=== PATIENT | male | born 1950 | race Caucasian/White ===

== ENCOUNTER → 2018-04-18 07:27 | Outpatient (CLI) | payer MEDICARE, OTHER, SELFPAY ==
[2018-04-18 10:15] LABS: Blood Urea Nitrogen 20 mg/dL (9-20); Calcium 9.3 mg/dL (8.4-10.2); Carbon Dioxide 29 mmol/L (22-32); Chloride 100 mmol/L (98-107); Estimated Glomerular Filt Rate > 60.0 mL/min (>60); Glucose 89 mg/dL (80-110); HEMOLYSIS < 15 (0-50); Potassium 4.9 mmol/L (3.4-5.1); Sodium 141 mmol/L (137-145)
== END ==
PROVIDERS: Family Provider Internal Medicine; PCP Internal Medicine; Visit Provider Internal Medicine Cardiovascular Disease
DX: Z51.81 Encounter for therapeutic drug level monitoring (principal); Z79.899 Other long term (current) drug therapy
CPT/HCPCS: 36415; 80048

== ENCOUNTER → 2018-08-01 08:45 | Outpatient (CLI) | payer MEDICARE, OTHER, SELFPAY ==
[2018-08-01 11:19] LABS: BUN Creatinine Ratio 22.2 (6-22); Blood Urea Nitrogen 20 mg/dL (9-20); Calcium 9.4 mg/dL (8.4-10.2); Carbon Dioxide 31 mmol/L (22-32); Chloride 102 mmol/L (98-107); Estimated Glomerular Filt Rate > 60.0 mL/min (>60); Glucose 89 mg/dL (80-110); HEMOLYSIS < 15 (0-50); Potassium 4.2 mmol/L (3.4-5.1); Sodium 144 mmol/L (137-145)
== END ==
PROVIDERS: PCP Internal Medicine; Visit Provider Internal Medicine Cardiovascular Disease
DX: Z51.81 Encounter for therapeutic drug level monitoring (principal); Z79.899 Other long term (current) drug therapy
CPT/HCPCS: 36415; 80048

== ENCOUNTER → 2018-10-26 10:46 | Outpatient (CLI) | payer MEDICARE, OTHER, SELFPAY ==
[2018-10-26 13:17] LABS: BUN Creatinine Ratio 18.9 (6-22); Blood Urea Nitrogen 17 mg/dL (9-20); Calcium 9.8 mg/dL (8.4-10.2); Carbon Dioxide 28 mmol/L (22-32); Chloride 102 mmol/L (98-107); Estimated Glomerular Filt Rate > 60.0 mL/min (>60); Glucose 95 mg/dL (80-110); HEMOLYSIS < 15 (0-50); Potassium 4.8 mmol/L (3.4-5.1); Sodium 143 mmol/L (137-145)
== END ==
PROVIDERS: PCP Internal Medicine; Visit Provider Internal Medicine Cardiovascular Disease
DX: Z51.81 Encounter for therapeutic drug level monitoring (principal)
CPT/HCPCS: 36415; 80048

== ENCOUNTER → 2019-04-26 10:07 | Outpatient (CLI) | payer MEDICARE, OTHER, SELFPAY ==
[2019-04-26 13:10] LABS: BUN Creatinine Ratio 23.8 (6-22); Blood Urea Nitrogen 19 mg/dL (9-20); Calcium 9.5 mg/dL (8.4-10.2); Carbon Dioxide 29 mmol/L (22-32); Chloride 103 mmol/L (98-107); Estimated Glomerular Filt Rate > 60.0 mL/min (>60); Glucose 102 mg/dL (80-110); HEMOLYSIS < 15 (0-50); Potassium 4.5 mmol/L (3.4-5.1); Sodium 141 mmol/L (137-145)
== END ==
PROVIDERS: PCP Internal Medicine; Visit Provider Internal Medicine Cardiovascular Disease
DX: Z51.81 Encounter for therapeutic drug level monitoring (principal)
CPT/HCPCS: 36415; 80048

== ENCOUNTER → 2019-08-28 08:50 | Outpatient (CLI) | payer MEDICARE, OTHER, SELFPAY ==
[2019-08-28 09:40] LABS: BUN Creatinine Ratio 24.4 (6-22); Blood Urea Nitrogen 22 mg/dL (9-20); Calcium 9.6 mg/dL (8.4-10.2); Carbon Dioxide 31 mmol/L (22-32); Chloride 100 mmol/L (98-107); Estimated Glomerular Filt Rate > 60.0 mL/min (>60); Glucose 97 mg/dL (80-110); HEMOLYSIS < 15 (0-50); Potassium 3.9 mmol/L (3.4-5.1); Sodium 140 mmol/L (137-145)
== END ==
PROVIDERS: Family Provider Internal Medicine; PCP Internal Medicine; Visit Provider Nurse Practitioner Family
DX: Z51.81 Encounter for therapeutic drug level monitoring (principal); Z79.899 Other long term (current) drug therapy; I48.0 Paroxysmal atrial fibrillation
CPT/HCPCS: 36415; 80048

== ENCOUNTER 2019-10-23 13:16 | Day surgery (SDC) | payer MEDICARE, OTHER, SELFPAY ==
[2019-10-23] VITALS (10 sets, daily range): BP systolic 105–158; BP diastolic 58–79; PULSE 60–79; RESP 10–20; TEMP 36.4–36.7; O2SAT 94–100; BMI 27.3
--- NOTE | 2019-10-23 | PATH_ITS ---
[facility] Accession Number: [id number] . 01 Material submitted: . cecum - CECAL POLYP . 02 Diagnosis: Cecum, Polyp: Tubular adenoma. I 10/24/2019 1025 Local . 02 Electronically signed: . Buster Roldan MD, PhD, Pathologist NPI- [id number] . 01 Gross description: . CECAL POLYP: Received in formalin are 4 fragment(s) of mcrae, soft tissue measuring 0.1 x 0.1 x 0.1 cm to 0.3 x 0.3 x 0.2 cm submitted entirely in 1 cassette(s) [place] [place]23/2019 2019 Local . 02 Pathologist provided ICD-10: D12.0 . 02 CPT . 927860 Performed at: 01 [facility] [address] [facility], [place], [place] [id number] MD Chet Isabel MD Phone: [phone] Performed at: 02 [facility] [address] [place], [place] [id number] MD Daphney Morales MD Phone: [phone]
--- NOTE | 2019-10-23 12:01 | PM.HP.1 ---
History of Present Illness History of Present Illness Date Patient Seen: 10/23/19 Chief complaint: 20350 Narrative: History of adenomatous colon polyps. Meds Home Medications and Allergies Home Medications Medication Instructions Recorded Confirmed Type [NASONEX] 50 mcg Q DAY #0 07/16/09 History atorvastatin [Lipitor] 40 mg PO HS #0 01/20/12 History ondansetron [Zofran ODT] 4 mg SUBLINGUAL Q6HP PRN #20 odt 08/16/17 Rx oxycodone-acetaminophen [Percocet] 1 - 2 tab PO Q6HP PRN #30 tab 08/16/17 Rx Exam Narrative Exam Narrative: Oropharynx free of lesions Chest clear to auscultation percussion Cardiac exam reveals no S3 or murmur Assessment & Plan Assessment & Plan narrative: History of colon polyps need for follow-up colonoscopy. Risks, benefits, alternatives have been explained. Patient is on Xarelto for paroxysmal atrial fibrillation and is gone off of it at least 5 days. This will be restarted post procedure.
--- NOTE | 2019-10-23 12:03 | PM.OP.ENDO ---
Operative Date/Time/Diagnoses Date of procedure: 10/23/19 Pre-op diagnosis: See indication and findings Procedure & Clinicians Study performed: Colonoscopy Indications: History of colon polyps Surgeon: Michelle Moon Procedure Notes Procedure in detail: After informed consent was obtained the patient was placed in left lateral decubitus position. The video colonoscope was introduced the rectum slowly advanced to the cecum. On slow withdrawal mucosa was carefully examined. The scope was removed. The patient tolerated procedure well. Preparation was good. Blood loss none Complications none Sedation Total sedation time 19 minutes Versed 5 mg fentanyl 100 micro g IV titration Findings 1. 1+ cm sessile polyp in the cecum. This was injected with 2 cc of saline to raise prior to removal. Hot snare was used to removed completely. 2. Scattered diverticulosis in the sigmoid colon 3. Otherwise negative colonoscopy to cecum. Mr. Gordon will need follow-up colonoscopy in 3-5 years. He should delay his restart of the Xarelto for another 2-3 days.
[2019-10-23] MEDS: SODIUM CHLORIDE 0.9% 1,000 ML 21 ML IV (13:41)
[2019-10-23] MEDS: MIDAZOLAM 5 MG/5 ML VIAL IV (14:35)
--- NOTE | 2019-10-23 14:37 | SUR.PHASEI ---
sleeping, resp even and regular, passing flatus.Skin warm and dry, color pink
--- NOTE | 2019-10-23 14:57 | SUR.PHASEI ---
Hob elevated, tolerating PO well. Preparing to transfer.
== END 2019-10-23 15:23 | disposition home or self-care (01) ==
PROVIDERS: Family Provider Internal Medicine; PCP Internal Medicine; Visit Provider Internal Medicine Gastroenterology
PROC: 0DJD8ZZ Inspection of Lower Intestinal Tract, Via Natural or Artificial Opening Endoscopic (ICD-10-PCS; CPT 45378; principal; 2019-10-23 14:30)
DX: Z12.11 Encounter for screening for malignant neoplasm of colon (principal); Z86.010 Personal history of colon polyps; I48.0 Paroxysmal atrial fibrillation; Z79.01 Long term (current) use of anticoagulants; K57.30 Diverticulosis of large intestine without perforation or abscess without bleeding; D12.0 Benign neoplasm of cecum
CPT/HCPCS: 45385; 45381; J2250

== ENCOUNTER → 2020-01-16 09:31 | Outpatient (CLI) | payer MEDICARE, OTHER, SELFPAY ==
[2020-01-16 10:22] LABS: BUN Creatinine Ratio 20.2 (6-22); Blood Urea Nitrogen 18 mg/dL (9-20); Calcium 9.7 mg/dL (8.4-10.2); Carbon Dioxide 30 mmol/L (22-32); Chloride 100 mmol/L (98-107); Estimated Glomerular Filt Rate > 60.0 mL/min (>60); Glucose 123 mg/dL (80-110); HEMOLYSIS 17 (0-50); Potassium 4.3 mmol/L (3.4-5.1); Sodium 136 mmol/L (137-145)
== END ==
PROVIDERS: Family Provider Internal Medicine; PCP Internal Medicine; Referring Provider Nurse Practitioner Family; Visit Provider Nurse Practitioner Family
DX: Z51.81 Encounter for therapeutic drug level monitoring (principal); Z79.899 Other long term (current) drug therapy
CPT/HCPCS: 36415; 80048

== ENCOUNTER 2020-02-12 19:25 | Emergency (ER) | payer MEDICARE, OTHER, SELFPAY ==
[2020-02-12 19:35] VITALS: BP 161/90; PULSE 80; RESP 16; TEMP 36.6; O2SAT 100; BMI 27.4
--- NOTE | 2020-02-12 19:52 | ED_ITS ---
HPI - Wound/Laceration <LIMA Oliva - Last Filed: 02/12/20 21:30> General Chief Complaint: Extremity Injury, Lower Stated Complaint: cut right foot Time Seen by Provider: 02/12/20 19:28 Source: patient Mode of arrival: Ambulatory Limitations: no limitations History of Present Illness HPI narrative: 69yo male presents to the ED for a laceration to his right foot which occurred about an hour ago. He states he was cutting cement board with this off and the saw a cut through his boot, soft, and into his foot. Patient states he takes Xarelto, the bleeding was stopped with pressure. However, he figured that he needed a update on his tetanus and reported significant tenderness to the area. Patient denies any other injuries. Patient denies fevers, chills, nausea, vomiting, diarrhea, chest pain, shortness of breath, or any other concerns. Related Data Home Medications Medication Instructions Recorded Confirmed atorvastatin [Lipitor] 40 mg PO HS #0 01/20/12 10/23/19 Xarelto 20 mg PO QPM 10/23/19 10/23/19 colchicine 0.6 mg PO DAILY 10/23/19 10/23/19 dofetilide 500 mcg PO Q12H 10/23/19 10/23/19 febuxostat 40 mg PO DAILY 10/23/19 10/23/19 fexofenadine 180 mg PO DAILY 10/23/19 10/23/19 losartan 25 mg PO QPM 10/23/19 10/23/19 Allergies Allergy/AdvReac Type Severity Reaction Status Date / Time allopurinol AdvReac Severe Depression Verified 10/23/19 13:55 and lethargy ramipril AdvReac Severe Cough Verified 10/23/19 13:55 Review of Systems <LIMA Oliva - Last Filed: 02/12/20 21:30> Review of Systems Narrative: REVIEW OF SYSTEMS: GENERAL: Denies fever or chills. HENT: Denies head trauma. EYE: Denies double vision or vision loss. CARDIOVASCULAR: Denies syncope. MUSCULOSKELETAL: Denies weakness, or deformities. INTEGUMENTARY: Complains of laceration, see HPI. NEURO: Denies numbness or tingling. Patient History <LIMA Oliva - Last Filed: 02/12/20 21:30> Medical History Chronic anticoagulation (Acute) Gout (Acute) History of colon polyps (Acute) Hyperlipidemia (Acute) Hypertension (Acute) Paroxysmal atrial fibrillation (Acute) Sleep apnea (Acute) Surgical History H/O cardiac radiofrequency ablation (Acute) H/O hernia repair (Acute) History of tonsillectomy (Acute) Social History household members: spouse Smoking Status: Never smoker Exam <LIMA Oliva - Last Filed: 02/12/20 21:30> Initial Vital Signs Initial Vital Signs: Vital Signs Temperature 97.9 F 02/12/20 19:35 Pulse Rate 80 02/12/20 19:35 Respiratory Rate 16 02/12/20 19:35 Blood Pressure 161/90 H 02/12/20 19:35 Pulse Oximetry 100 02/12/20 19:35 PHYSICAL EXAMINATION: GENERAL: Well groomed, alert, and cooperative. Answers questions promptly and appropriately. Vital signs noted. HENT: Normocephalic, atraumatic. RESPIRATORY: Normal respiratory rate, trachea midline, airway patent. No stridor, nasal flaring or accessory muscle use. MUSCULOSKELETAL: Normal gait and coordination. Equal tone and mass bilaterally. EXTREMITIES: CMS intact. Moves all extremities. SKIN: Warm, dry, soft, appropriate color for ethnicity. There is a 2 cm laceration noted to lateral aspect of 5th metatarsal, wound was significantly irrigated, small amount of foreign bodies noted. Wound was repaired with Steri- Strips. No surrounding erythema or ecchymosis. NEURO: Alert and Oriented X 3. Good coordination. PSYCH: Appropriate affect and mood. <Denzel Callaway MD - Last Filed: 02/13/20 02:35> Initial Vital Signs Initial Vital Signs: Vital Signs Temperature 97.9 F 02/12/20 19:35 Pulse Rate 80 02/12/20 19:35 Respiratory Rate 16 02/12/20 19:35 Blood Pressure 161/90 H 02/12/20 19:35 Pulse Oximetry 100 02/12/20 19:35 Procedures <LIMA Oliva - Last Filed: 02/12/20 21:30> Laceration Repair Laceration 1: Site: lower extremity Size (cm): 2 Description: linear Depth: simple, single layer Local Anesthetic: lidocaine 1% and with bicarb Amount of anesthesia used (mL): 5 Pre-repair: wound explored and irrigated extensively Skin layer closed with: steri-strips Course <LIMA Oliva - Last Filed: 02/12/20 21:30> Course Course Narrative: Tdap was updated, wound was extensively irrigated. Orders Ordered: ED Orders 02/12/20 19:50 XR foot RT min 3V Stat Discontinued Medications Diphtheria/Tetanus/Acell Pertussis (Adacel) 0.5 ml IM .ONCE ONE Stop: 02/12/20 19:54 Last Admin: 02/12/20 20:09 Dose: 0.5 ml Documented by: JANELLE Lidocaine/Sodium Bicarbonate (Buffered Lidocaine 10 Ml Syr) 10 ml INJ NOW ONE Stop: 02/12/20 20:07 Last Admin: 02/12/20 20:20 Dose: 10 ml Documented by: JANELLE Vital Signs Vital signs: Vital Signs - 8 hr 02/12/20 19:35 02/12/20 20:47 Temperature 97.9 F Pulse Rate 80 66 Respiratory Rate 16 15 Blood Pressure 161/90 H Blood Pressure [Right Arm] 122/73 Pulse Oximetry 100 100 <Denzel Callaway MD - Last Filed: 02/13/20 02:35> Orders Ordered: ED Orders 02/12/20 19:50 XR foot RT min 3V Stat Discontinued Medications Diphtheria/Tetanus/Acell Pertussis (Adacel) 0.5 ml IM .ONCE ONE Stop: 02/12/20 19:54 Last Admin: 02/12/20 20:09 Dose: 0.5 ml Documented by: JANELLE Lidocaine/Sodium Bicarbonate (Buffered Lidocaine 10 Ml Syr) 10 ml INJ NOW ONE Stop: 02/12/20 20:07 Last Admin: 02/12/20 20:20 Dose: 10 ml Documented by: JANELLE Vital Signs Vital signs: Vital Signs - 8 hr 02/12/20 19:35 02/12/20 20:47 Temperature 97.9 F Pulse Rate 80 66 Respiratory Rate 16 15 Blood Pressure 161/90 H Blood Pressure [Right Arm] 122/73 Pulse Oximetry 100 100 MDM - Wound/Laceration <LIMA Oliva - Last Filed: 02/12/20 21:30> Medical Records Attestation: I reviewed the patient's medical records. Lab Data Attestation: I reviewed the patient's lab results. Imaging Data Extremity x-ray #1: Radiologist's Impression: [address] [address] XRay Report Signed Patient: Luis Gordon RMR#: [id number] : 9Acct:[id number] Age/Sex: 69 / MDate of Service: 02/12/20 Loc: ED Accession Number: [id number] Procedure: XR foot RT min 3V Ordering Provider: Luz Marina Harris PROCEDURE: XR FOOT RT MIN 3V INDICATIONS: R foot lac w/ saw, 5th metatarsal tenderness TECHNIQUE: 3 views of the foot were acquired. COMPARISON: [facility], , FOOT 3V LEFT, 01/05/2012, 9:39. FINDINGS: Bones: No fractures or dislocations. No suspicious bony lesions. Soft tissues: No tibiotalar joint effusion. Achilles tendon appears normal. IMPRESSION: No acute fracture. No osseous lesion. If symptoms and/or clinical suspicion for pathology persist, further assessment with repeat, or advanced imaging (e.g., CT, MRI, or bone scan) may be helpful for further assessment. Dictated by: Bushra Jolly M.D. on 02/12/2020 at 20:04 Approved by: Bushra Jolly M.D. on 02/12/2020 at 20:04 [facility] Narrative Medical decision making narrative: 69yo male who is currently taking xarelto, presents to the ED for a laceration to his right lateral foot that occurred from a saw while cutting a cement work. X-ray was obtained due to tenderness to the 5th metatarsal, no fractures apparent. No concern for tendon involvement due to location and patient has full range of motion against resistance. Wound was numbed and aggressively cleaned due to presence of foreign body. Steri-Strips were applied promote healing without tight closure as wound was initially quite dirty. No concern for excessive bleeding is bleeding was controlled upon arrival. Patient was counseled extensively to monitor for signs of infection such as purulent drainage, erythema, or worsening pain. He was encouraged to follow up with his PCP. Patient agreed to plan of care verbalized understanding. Discharge Plan Departure Patient Disposition: Home Clinical Impression: Laceration Discharge Date/Time: 02/12/20 20:58 Instructions: DI for Laceration Repair Activity Restrictions/Additional Instructions: Thank you for entrusting me with your care today. As discussed, x-rays negative for any fractures. Your Tdap vaccination was updated today. Your wound was cleaned extensively, there was a significant amount of debris in your wound. We have placed Steri-Strips to help your wound heal. These will most likley fall off in 3-5 days, do not pull at them, you may cut off the loose ends once they start to fall off. Do not soak your foot and water such as a hot tub or path. You may take a shower after 24 hours. Watch for signs of infection such as increased redness, pus, severe tenderness, and swelling--if these occur please be seen immediately. Return emergency department for any new or worsening symptoms. Prescriptions: No Action atorvastatin [Lipitor] 40 MG tablet 40 mg PO HS Qty: 0 RF: 0 fexofenadine 180 mg Tablet 180 mg PO DAILY RF: 0 losartan 25 mg Tablet 25 mg PO QPM RF: 0 colchicine 0.6 mg Tablet 0.6 mg PO DAILY RF: 0 dofetilide 500 mcg Capsule 500 mcg PO Q12H RF: 0 febuxostat 40 mg Tablet 40 mg PO DAILY RF: 0 Xarelto 20 mg Tablet 20 mg PO QPM RF: 0 Referrals: Osmin Mortensen MD [Primary Care Provider] -
[2020-02-12] MEDS: TET,DIPH,PERTUSS(ACELL),VAC/PF 0.5 ML SYRINGE IM (20:09)
[2020-02-12] MEDS: LIDO 1%/SOD BICARB 8.4% (10ML) 10 ML SYRINGE INJ (20:20)
[2020-02-12 20:47] VITALS: BP 122/73; PULSE 66; RESP 15; O2SAT 100
== END 2020-02-12 20:58 | disposition home or self-care (01) ==
PROVIDERS: Emergency Provider Nurse Practitioner; Family Provider Internal Medicine; PCP Internal Medicine
DX: S91.311A Laceration without foreign body, right foot, initial encounter (principal); W27.8XXA Contact with other nonpowered hand tool, initial encounter; Z23 Encounter for immunization
CPT/HCPCS: 73630; 90471; 99283; 90715

== ENCOUNTER → 2020-05-26 09:34 | Outpatient (CLI) | payer MEDICARE, OTHER, SELFPAY ==
[2020-05-26 12:18] LABS: BUN Creatinine Ratio 18.9 (6-22); Blood Urea Nitrogen 17 mg/dL (9-20); Calcium 9.8 mg/dL (8.4-10.2); Carbon Dioxide 29 mmol/L (22-32); Chloride 101 mmol/L (98-107); Estimated Glomerular Filt Rate > 60.0 mL/min (>60); Glucose 87 mg/dL (80-110); HEMOLYSIS < 15 (0-50); Sodium 138 mmol/L (137-145)
== END ==
PROVIDERS: Family Provider Internal Medicine; PCP Internal Medicine; Referring Provider Nurse Practitioner Family; Visit Provider Nurse Practitioner Family
DX: Z51.81 Encounter for therapeutic drug level monitoring (principal); Z79.899 Other long term (current) drug therapy
CPT/HCPCS: 36415; 80048

== ENCOUNTER → 2020-11-24 10:48 | Outpatient (CLI) | payer MEDICARE, OTHER, SELFPAY ==
[2020-11-24 12:21] LABS: BUN Creatinine Ratio 18.2 (6-22); Blood Urea Nitrogen 16 mg/dL (9-20); Calcium 9.6 mg/dL (8.4-10.2); Carbon Dioxide 31 mmol/L (22-32); Chloride 103 mmol/L (98-107); Estimated Glomerular Filt Rate > 60.0 mL/min (>60); Glucose 105 mg/dL (80-110); HEMOLYSIS < 15 (0-50); Potassium 4.4 mmol/L (3.4-5.1); Sodium 138 mmol/L (137-145)
== END ==
PROVIDERS: Family Provider Internal Medicine; PCP Internal Medicine; Referring Provider Nurse Practitioner Family; Visit Provider Nurse Practitioner Family
DX: Z51.81 Encounter for therapeutic drug level monitoring (principal); Z79.899 Other long term (current) drug therapy
CPT/HCPCS: 36415; 80048

== ENCOUNTER → 2021-01-28 14:57 | Outpatient (ROUT) | payer MEDICARE, OTHER, SELFPAY ==
[2021-01-28 16:02] LABS: Add Manual Diff / Slide Review NO; Basophils Absolute Auto 100 /uL (0-100); Basophils Percent Auto 1.1 % (0-2); Eosinophils Absolute Auto 400 /uL (0-450); Eosinophils Percent Auto 5.4 % (2-4); Hematocrit 43.8 % (41-53); Lymphocytes Absolute Auto 2200 /uL (1100-4500); Lymphocytes Percent Auto 33.6 % (25-40); Mean Corpuscular HGB Conc 34.3 % (30-36); Mean Corpuscular Hemoglobin 32.7 PG (26-34); Mean Corpuscular Volume 95.4 fL (80-100); Monocytes Absolute Auto 600 /uL (0-900); Monocytes Percent Auto 9.5 % (3-14); Neutrophils Absolute Auto 3300 /uL (1500-7000); Neutrophils Percent Auto 50.4 % (50-75); Platelet Count 193 X10^3/uL (150-400); Red Blood Cell Count 4.59 X10^6/uL (4.5-5.9); Red Cell Distribution Width 12.6 % (11.6-14.8); White Blood Cell Count 6.5 X10^3/uL (4.5-11.0)
[2021-01-28 16:31] LABS: Aspartate Aminotransferase 34 IU/L (17-59); Cholesterol 172 mg/dL (140-199); HDL Cholesterol 48 mg/dL (40-60); LDL Cholesterol Calculated 81 mg/dL (<100); Triglycerides 215 mg/dL (35-150)
== END ==
PROVIDERS: Family Provider Internal Medicine; PCP Internal Medicine; Visit Provider Internal Medicine
DX: E78.2 Mixed hyperlipidemia (principal); N40.0 Benign prostatic hyperplasia without lower urinary tract symptoms; I48.0 Paroxysmal atrial fibrillation
CPT/HCPCS: 80061; 84153; 84450; 85025; G0103

== ENCOUNTER → 2021-02-12 09:11 | Outpatient (CLI) | payer MEDICARE, OTHER, SELFPAY ==
[2021-02-12 10:06] LABS: BUN Creatinine Ratio 25.9 (6-22); Blood Urea Nitrogen 22 mg/dL (9-20); Calcium 9.5 mg/dL (8.4-10.2); Carbon Dioxide 29 mmol/L (22-32); Chloride 102 mmol/L (98-107); Estimated Glomerular Filt Rate > 60.0 mL/min (>60); Glucose 116 mg/dL (80-110); HEMOLYSIS < 15 (0-50); Potassium 4.5 mmol/L (3.4-5.1); Sodium 137 mmol/L (137-145)
== END ==
PROVIDERS: Family Provider Internal Medicine; PCP Internal Medicine; Referring Provider Nurse Practitioner Acute Care; Visit Provider Nurse Practitioner Acute Care
DX: Z51.81 Encounter for therapeutic drug level monitoring (principal); Z79.899 Other long term (current) drug therapy
CPT/HCPCS: 36415; 80048

== ENCOUNTER → 2021-10-19 09:10 | Outpatient (CLI) | payer MEDICARE, OTHER, SELFPAY ==
[2021-10-19 11:13] LABS: BUN Creatinine Ratio 16.5 (6-22); Blood Urea Nitrogen 16 mg/dL (9-20); Calcium 9.8 mg/dL (8.4-10.2); Carbon Dioxide 30 mmol/L (22-32); Chloride 104 mmol/L (98-107); Estimated Glomerular Filt Rate > 60.0 mL/min (>60); Glucose 111 mg/dL (80-110); HEMOLYSIS < 15 (0-50); Potassium 4.5 mmol/L (3.4-5.1); Sodium 138 mmol/L (137-145)
== END ==
PROVIDERS: Family Provider Internal Medicine; PCP Internal Medicine; Referring Provider Nurse Practitioner Family; Visit Provider Nurse Practitioner Family
DX: Z51.81 Encounter for therapeutic drug level monitoring (principal); Z79.899 Other long term (current) drug therapy
CPT/HCPCS: 36415; 80048

== ENCOUNTER → 2022-01-20 09:26 | Outpatient (CLI) | payer MEDICARE, OTHER, SELFPAY ==
[2022-01-20 10:35] LABS: BUN Creatinine Ratio 20.5 (6-22); Blood Urea Nitrogen 18 mg/dL (9-20); Calcium 9.3 mg/dL (8.4-10.2); Carbon Dioxide 31 mmol/L (22-32); Chloride 104 mmol/L (98-107); Estimated Glomerular Filt Rate > 60.0 mL/min (>60); Glucose 87 mg/dL (80-110); HEMOLYSIS < 15 (0-50); Potassium 4.4 mmol/L (3.4-5.1); Sodium 140 mmol/L (137-145)
== END ==
PROVIDERS: Family Provider Internal Medicine; PCP Internal Medicine; Referring Provider Nurse Practitioner Family; Visit Provider Nurse Practitioner Family
DX: Z51.81 Encounter for therapeutic drug level monitoring (principal); Z79.899 Other long term (current) drug therapy
CPT/HCPCS: 36415; 80048

== ENCOUNTER → 2022-04-19 09:19 | Outpatient (CLI) | payer MEDICARE, OTHER, SELFPAY ==
[2022-04-19 10:09] LABS: Magnesium 2.1 mg/dL (1.6-2.3)
[2022-04-19 11:42] LABS: Blood Urea Nitrogen 17 mg/dL (9-20); Calcium 9.3 mg/dL (8.4-10.2); Carbon Dioxide 29 mmol/L (22-32); Chloride 103 mmol/L (98-107); Estimated Glomerular Filt Rate > 60 mL/min (>60); Glucose 109 mg/dL (80-110); HEMOLYSIS < 15 (0-50); Potassium 4.4 mmol/L (3.4-5.1); Sodium 138 mmol/L (137-145)
== END ==
PROVIDERS: Family Provider Internal Medicine; PCP Internal Medicine; Referring Provider Nurse Practitioner Family; Visit Provider Nurse Practitioner Family
DX: I48.0 Paroxysmal atrial fibrillation (principal); Z51.81 Encounter for therapeutic drug level monitoring; Z79.899 Other long term (current) drug therapy
CPT/HCPCS: 36415; 80048; 83735

== ENCOUNTER → 2022-07-21 13:40 | Outpatient (CLI) | payer MEDICARE, OTHER, SELFPAY ==
[2022-07-21 14:39] LABS: BUN Creatinine Ratio 20.8 (6-22); Blood Urea Nitrogen 20 mg/dL (9-20); Calcium 9.2 mg/dL (8.4-10.2); Carbon Dioxide 30 mmol/L (22-32); Chloride 102 mmol/L (98-107); Estimated Glomerular Filt Rate > 60 mL/min (>60); Glucose 86 mg/dL (80-110); HEMOLYSIS < 15 (0-50); Potassium 4.1 mmol/L (3.4-5.1); Sodium 139 mmol/L (137-145)
== END ==
PROVIDERS: Family Provider Internal Medicine; PCP Internal Medicine; Referring Provider Nurse Practitioner Family; Visit Provider Nurse Practitioner Family
DX: Z51.81 Encounter for therapeutic drug level monitoring (principal); Z79.899 Other long term (current) drug therapy
CPT/HCPCS: 36415; 80048

== ENCOUNTER → 2022-07-22 16:05 | Outpatient (CLI) | payer MEDICARE, OTHER, SELFPAY ==
[2022-07-22 16:50] LABS: Hematocrit 41.8 % (41-53); Hemoglobin 14.4 g/dL (13.5-17.5); Mean Corpuscular HGB Conc 34.4 % (30-36); Mean Corpuscular Hemoglobin 31.5 PG (26-34); Mean Corpuscular Volume 91.7 fL (80-100); Platelet Count 182 X10^3/uL (150-400); Red Blood Cell Count 4.56 X10^6/uL (4.5-5.9); Red Cell Distribution Width 12.7 % (11.6-14.8); White Blood Cell Count 6.6 X10^3/uL (4.5-11.0)
[2022-07-22 17:16] LABS: Cholesterol 130 mg/dL (140-199); HDL Cholesterol 41 mg/dL (40-60); LDL Cholesterol Calculated 75 mg/dL (<100); Triglycerides 72 mg/dL (35-150)
[2022-07-22 17:46] LABS: Prostate Specific Antigen 1.99 ng/mL (0.10-4.00)
== END ==
PROVIDERS: Family Provider Internal Medicine; PCP Internal Medicine; Referring Provider Internal Medicine; Visit Provider Internal Medicine
DX: E78.2 Mixed hyperlipidemia (principal); I10 Essential (primary) hypertension; I48.0 Paroxysmal atrial fibrillation; Z79.01 Long term (current) use of anticoagulants; N40.0 Benign prostatic hyperplasia without lower urinary tract symptoms
CPT/HCPCS: 36415; 80061; 84153; 85027

== ENCOUNTER → 2022-10-17 09:21 | Outpatient (CLI) | payer MEDICARE, OTHER, SELFPAY ==
[2022-10-17 11:09] LABS: BUN Creatinine Ratio 14.7 (6-22); Blood Urea Nitrogen 14 mg/dL (9-20); Calcium 9.2 mg/dL (8.4-10.2); Carbon Dioxide 29 mmol/L (22-32); Chloride 103 mmol/L (98-107); Estimated Glomerular Filt Rate > 60 mL/min (>60); Glucose 77 mg/dL (80-110); HEMOLYSIS < 15 (0-50); Potassium 4.1 mmol/L (3.4-5.1); Sodium 140 mmol/L (137-145)
== END ==
PROVIDERS: Family Provider Internal Medicine; PCP Internal Medicine; Referring Provider Nurse Practitioner; Visit Provider Nurse Practitioner
DX: I48.0 Paroxysmal atrial fibrillation (principal); Z51.81 Encounter for therapeutic drug level monitoring; Z79.899 Other long term (current) drug therapy
CPT/HCPCS: 36415; 80048

== ENCOUNTER 2023-01-09 13:14 | Day surgery (SDC) | payer MEDICARE, OTHER, SELFPAY ==
--- NOTE | 2023-01-09 | PATH_ITS ---
[facility] Accession Number: [id number] No. of containers..01 Tissue . 01 Material submitted: . colon - ASCENDING COLON POLYP . 01 Diagnosis: Ascending Colon Polyp: Tubular adenoma. JUAN 01/13/2023 0921 Local . 01 Electronically signed: . Buster Roldan MD, PhD, Pathologist NPI- [id number] . 01 Gross description: . ASCENDING COLON POLYP: Received in formalin is 1 fragment(s) of mcrae, soft tissue measuring 0.2 x 0.1 x 0.1 cm submitted entirely in 1 cassette(s) /[facility] 01/10/2023 0751 Local . 01 Pathologist provided ICD-10: D12.2 . 01 CPT . 673825 Specimen Comment: A courtesy copy of this report has been sent to [phone] Performed at: 01 [facility] [address] [place] [address], [place], [place] [id number] MD Chet Isabel MD Phone: [phone]
[2023-01-09] MEDS: LACTATED RINGERS 1,000 ML 84 ML IV (13:27)
[2023-01-09 13:30] VITALS: BP 148/82; PULSE 62; RESP 18; TEMP 36.8; O2SAT 100; BMI 27.0
--- NOTE | 2023-01-09 13:52 | PM.HP.1 ---
History of Present Illness History of Present Illness Date Patient Seen: 01/09/23 Time Patient Seen: 13:52 Chief complaint: SDC Narrative: I reviewed my recent office note. No significant changes. Patient is off his blood thinner x2 days. Patient History Medical History Advanced directives, counseling/discussion Allergies BPH w urinary obs/LUTS Chicken pox Chronic anticoagulation Chronic anticoagulation Do not resuscitate Essential hypertension Gout (~2017) History of colon polyps Medicare annual wellness visit, initial Mixed hyperlipidemia Mumps Paroxysmal atrial fibrillation Paroxysmal atrial fibrillation Skin cancer, basal cell (~2004) Sleep apnea (~2002) Squamous cell skin cancer Surgical History Anesthesia H/O cardiac radiofrequency ablation H/O hernia repair History of repair of cleft lip History of tonsillectomy History of vasectomy Family & Social History Family History Father Dementia Mother Cancer Grandmother Dementia Grandmother Dementia Social History: household members spouse Tobacco & Substance use: Smoking Status Never smoker alcohol intake frequency 0-2 drinks per day Substance Use Type does not use Meds Home Medications and Allergies Home Medications Medication Instructions Recorded Confirmed Type dofetilide 500 mcg capsule 500 mcg PO Q12H 10/23/19 12/15/22 History atorvastatin 40 mg tablet (Lipitor) 40 mg PO HS #90 tabs 03/09/22 12/15/22 Rx febuxostat 40 mg tablet 40 mg PO DAILY #90 tabs 03/09/22 12/15/22 Rx losartan 25 mg tablet 25 mg PO QPM #90 tabs 03/09/22 12/15/22 Rx rivaroxaban 20 mg tablet (Xarelto) 20 mg PO QPM #90 tabs 03/09/22 12/15/22 Rx colchicine 0.6 mg tablet 0.6 mg PO DAILY PRN gout attack 12/15/22 12/15/22 History Allergies Allergy/AdvReac Type Severity Reaction Status Date / Time allopurinol AdvReac Severe Depression Verified 12/15/22 15:25 and lethargy ramipril AdvReac Severe Cough Verified 12/15/22 15:25 Review of Systems Review of Systems ROS: Yes All systems reviewed with the patient and are negative except as otherwise documented Exam Const General: cooperative HENMT Head: normal to inspection Eyes General: appearance normal, both eyes and all related structures Neck Neck: normal visual inspection Chest Chest: normal inspection of the chest Resp Effort & Inspection: normal respiratory effort Cardio Rate: regular rate GI Inspection: normal to inspection Skin General: no rashes or lesions noted Neuro General: patient alert and patient awake Extrem General: normal to inspection and no pedal edema Psych Appearance: grossly normal Assessment & Plan Assessment & Plan narrative: 72-year-old male with a personal history of colon polyps. Colonoscopy is pursued today. Time Spent With Patient Critical Care time: I spent a total of [] minutes of critical care time on this patient's care today; this time is exclusive of procedural time.
--- NOTE | 2023-01-09 13:53 | PM.PREOP ---
Pre-operative Note Interval Note History & Physical reviewed/Exam performed by Physician: Yes Changes to H&P: No ASA Class (for procedural sedation): III
--- NOTE | 2023-01-09 15:02 | PM.OP.COLON ---
Operative Date/Time/Diagnoses Date of procedure: 01/09/23 Time of procedure: 15:02 Pre-op diagnosis: Colon polyp history Post-op diagnosis: same Procedure & Clinicians Study performed: Colonoscopy with cold forceps polypectomy Same procedure as scheduled: Yes Indications: Colon polyp history Surgeon: Bladimir Lees Procedure Notes SCOAP/Timeout: Done Procedure in detail: After the risks and benefits were explained, written and verbal informed consent was obtained. The patient was brought into the procedure room and placed into the left lateral decubitus position. Please see anesthesia notes for sedation details. Digital rectal examination was accomplished. The scope was introduced into the patient and advanced under direct visualization to the cecum as identified by the appendiceal orifice and ileocecal valve. The scope was slowly withdrawn to carefully examine the mucosa for any defects or lesions. Comprehensive imaging was accomplished throughout the rectum including the dentate line. The colon was decompressed, the scope was then removed from the patient who tolerated the procedure well. Adult colonoscope Bowel prep fair Scope withdrawal time: 8 minutes Sedation minutes: 20 Complications: none Impression: Scant diverticulosis was encountered in the left colon and extended all the way into ascending colon. There was a diminutive 3 mm polyp in the ascending colon removed with cold forceps. No additional mucosal pathology was appreciated throughout. The patient had evidence of at least grade 2 internal hemorrhoids. Endoscopic diagnosis 1. Grade 2 hemorrhoids 2. Diverticulosis 3. Small colon polyp Post-procedure Plan for aftercare: 1. Await histopathology. 2. Repeat colonoscopy 5 years considering personal history of colon polyps at prior colonoscopies and only fair prep today. 3. Okay to restart Xarelto starting tomorrow. Disposition: PACU
[2023-01-09 15:06] VITALS: BP 107/63; PULSE 56; RESP 12; TEMP 36.2; O2SAT 99
[2023-01-09 15:10] VITALS: BP 107/63; PULSE 59; RESP 13; TEMP 36.2; O2SAT 99
[2023-01-09 15:14] VITALS: BP 115/68; PULSE 57; RESP 13; TEMP 36.3; O2SAT 99
[2023-01-09 15:19] VITALS: BP 120/73; PULSE 61; RESP 11; TEMP 36.1; O2SAT 98
== END 2023-01-09 15:45 | disposition home or self-care (01) ==
PROVIDERS: Family Provider Internal Medicine; PCP Internal Medicine; Referring Provider Internal Medicine Gastroenterology; Visit Provider Internal Medicine Gastroenterology
PROC: 0DJD8ZZ Inspection of Lower Intestinal Tract, Via Natural or Artificial Opening Endoscopic (ICD-10-PCS; CPT 45378; principal; 2023-01-09 14:30)
DX: Z12.11 Encounter for screening for malignant neoplasm of colon (principal); Z86.010 Personal history of colon polyps; I48.91 Unspecified atrial fibrillation; Z79.01 Long term (current) use of anticoagulants; K64.1 Second degree hemorrhoids; K57.30 Diverticulosis of large intestine without perforation or abscess without bleeding; D12.2 Benign neoplasm of ascending colon
CPT/HCPCS: 45380; J2704

== ENCOUNTER → 2023-01-24 09:17 | Outpatient (CLI) | payer MEDICARE, OTHER, SELFPAY ==
[2023-01-24 10:39] LABS: BUN Creatinine Ratio 19.8 (6-22); Blood Urea Nitrogen 21 mg/dL (9-20); Carbon Dioxide 30 mmol/L (22-32); Chloride 103 mmol/L (98-107); Estimated Glomerular Filt Rate > 60 mL/min (>60); Glucose 84 mg/dL (80-110); HEMOLYSIS < 15 (0-50); Potassium 4.7 mmol/L (3.4-5.1); Sodium 140 mmol/L (137-145)
== END ==
PROVIDERS: Family Provider Internal Medicine; PCP Internal Medicine; Referring Provider Nurse Practitioner; Visit Provider Nurse Practitioner
DX: I48.0 Paroxysmal atrial fibrillation (principal); I10 Essential (primary) hypertension; I35.0 Nonrheumatic aortic (valve) stenosis
CPT/HCPCS: 36415; 80048

== ENCOUNTER → 2023-06-05 14:06 | Outpatient (CLI) | payer MEDICARE, OTHER, SELFPAY ==
[2023-06-05 15:12] LABS: BUN Creatinine Ratio 24.5 (6-22); Blood Urea Nitrogen 24 mg/dL (9-20); Calcium 9.4 mg/dL (8.4-10.2); Carbon Dioxide 28 mmol/L (22-32); Chloride 102 mmol/L (98-107); Estimated Glomerular Filt Rate > 60 mL/min (>60); Glucose 121 mg/dL (80-110); HEMOLYSIS < 15 (0-50); Potassium 4.3 mmol/L (3.4-5.1); Sodium 137 mmol/L (137-145)
== END ==
PROVIDERS: Family Provider Internal Medicine; PCP Internal Medicine; Referring Provider Nurse Practitioner; Visit Provider Nurse Practitioner
DX: I48.0 Paroxysmal atrial fibrillation (principal); Z51.81 Encounter for therapeutic drug level monitoring; Z79.899 Other long term (current) drug therapy
CPT/HCPCS: 36415; 80048

== ENCOUNTER 2023-07-14 10:58 | Day surgery (SDC) | payer MEDICARE, OTHER, SELFPAY ==
[2023-06-29 16:45] VITALS: BMI 27.6
[2023-07-14] VITALS (7 sets, daily range): BP systolic 141–152; BP diastolic 73–84; PULSE 60–70; RESP 13–18; TEMP 36.2–36.8; O2SAT 96–99; BMI 27.6
[2023-07-14] MEDS: ACETAMINOPHEN 325 MG TABLET 650 MG PO (11:35)
--- NOTE | 2023-07-14 12:16 | PM.PREOP ---
Pre-operative Note Interval Note History & Physical reviewed/Exam performed by Physician: Yes Changes to H&P: No
--- NOTE | 2023-07-14 12:16 | PM.OP.1 ---
Operative Date/Time/Diagnoses Date of procedure: 07/14/23 Time of procedure: 12:16 Pre-op diagnosis: Left inguinal hernia Post-op diagnosis: same Procedure & Clinicians Procedure: Open left inguinal hernia repair with mesh Same procedure as scheduled: Yes Indications: Symptomatic reducible left inguinal hernia Surgeon: Lico Ortega Anesthesia Type: MAC +/- Operative Notes Findings: Indirect hernia containing omentum. No direct floor defect. Specimen(s): none sent Procedure in detail: The patient was placed supine on the table and bilateral lower extremity compression devices were applied. Anesthesia was induced they were intubated with an LMA and received Ancef. A time-out was performed. They were prepped and draped in sterile fashion. The left external inguinal ring and the anterior superior iliac crest were identified and marked. 1 finger breath above the inguinal ligament the skin was infiltrated with 0.25% bupivacaine. The skin incision was made, the subcutaneous tissues were divided with electrocautery exposing the external oblique aponeurosis which was then opened along the direction of its fibers. Using blunt dissection the internal oblique aporneurosis was from the external oblique upper leaflet. The cord was carefully dissected away from the inguinal canal adjacent to the pubic tubercle. The cord including the vas deferens, testicular bloody supply, ilioguinal and genital nerve were encircled with a Bryan drain. No direct floor defect was identified The cremasteric fibers surrounding the cord were divided adjacent to the internal ring. The vas deferens and the testicular vessels were preserved and protected. The cord contents were carefully explored. There was a moderate size indirect hernia on the anterior medial aspect of the cord which was skeletonized away from the vas deferens and testicular blood supply. The indirect hernia was skeletonized back to the internal ring and reduced spontaneously into the abdomen. A 7x 15 cm lightweight Bard Pro Loop hernia mesh was anchored to the insertion of the rectus muscle at the pubic tubercle such that there was approximately 2 cm of tubercle overlap with Ethibond. The inferior edge of the mesh was secured to the shelving edge of the inguinal ligament using Ethibond. Interrupted 3 0 Vicryl suture was used to anchor the superior aspect of the mesh to the conjoined tendon in several places. The tails were then reapproximated loosely around the spermatic cord. The tails of the mesh were then tucked under the external oblique aponeurosis. The repair was checked for hemostasis. The wound was irrigated with sterile saline. The external oblique aponeurosis was reapproximated in a running fashion using 3 0 Vicryl. The subcutaneous tissues were reapproximated with 3 0 Vicryl skin closed with 4 0 Monocryl followed by the application of Dermabond. At the end of the operation I ensured that both testicles were within the scrotum. The sponge instrument count at the end operation was correct. The patient emerged from anesthesia was extubated and transferred to the postoperative care unit in stable condition. A total of 30 ml of of 0.25% bupivicaine was used to infiltrate the skin. Complications: none Post-operative Condition: stable Disposition: same day surgery
--- NOTE | 2023-07-14 12:17 | PM.PREOP ---
Pre-operative Note Interval Note History & Physical reviewed/Exam performed by Physician: Yes Changes to H&P: No
[2023-07-14] MEDS: CEFAZOLIN 2 GM/100 ML PREMIX 100 ML IV (12:19)
--- NOTE | 2023-07-14 12:44 | SUR.OPER ---
Supine on padded OR bed, head on pillow, arms secured on padded arm boards at <90 degrees abduction, legs uncrossed, safety belt at thigh, tape over blanket over lower legs.
[2023-07-14] MEDS: LACTATED RINGERS 1,000 ML 100 ML IV ×2 (13:27→14:37)
== END 2023-07-14 14:28 | disposition home or self-care (01) ==
PROVIDERS: Family Provider Internal Medicine; PCP Internal Medicine; Referring Provider Surgery; Visit Provider Surgery
PROC: (CPT 49505; principal; 2023-07-14 12:30)
DX: K40.90 Unilateral inguinal hernia, without obstruction or gangrene, not specified as recurrent (principal); I48.91 Unspecified atrial fibrillation; Z79.01 Long term (current) use of anticoagulants
CPT/HCPCS: 49505; J0690; J1100; J2405; J2704; J3010

== ENCOUNTER → 2023-08-29 08:06 | Outpatient (CLI) | payer MEDICARE, OTHER, SELFPAY ==
[2023-08-29 09:18] LABS: Blood Urea Nitrogen 15 mg/dL (9-20); Calcium 9.2 mg/dL (8.4-10.2); Carbon Dioxide 25 mmol/L (22-32); Chloride 103 mmol/L (98-107); Cholesterol 158 mg/dL (140-199); Estimated Glomerular Filt Rate > 60 mL/min (>60); Glucose 108 mg/dL (80-110); HDL Cholesterol 49 mg/dL (40-60); HEMOLYSIS < 15 (0-50); LDL Cholesterol Calculated 95 mg/dL (<100); Potassium 4.5 mmol/L (3.4-5.1); Sodium 137 mmol/L (137-145); Triglycerides 71 mg/dL (35-150)
== END ==
PROVIDERS: Family Provider Internal Medicine; PCP Internal Medicine; Referring Provider Nurse Practitioner; Visit Provider Nurse Practitioner
DX: Z79.899 Other long term (current) drug therapy (principal); I48.0 Paroxysmal atrial fibrillation; Z51.81 Encounter for therapeutic drug level monitoring
CPT/HCPCS: 36415; 80048; 80061

== ENCOUNTER → 2023-11-30 09:44 | Outpatient (CLI) | payer MEDICARE, OTHER, SELFPAY ==
[2023-11-30 11:02] LABS: BUN Creatinine Ratio 24.7 (6-22); Blood Urea Nitrogen 23 mg/dL (9-20); Calcium 9.5 mg/dL (8.4-10.2); Carbon Dioxide 30 mmol/L (22-32); Chloride 101 mmol/L (98-107); Estimated Glomerular Filt Rate > 60 mL/min (>60); Glucose 98 mg/dL (80-110); HEMOLYSIS < 15 (0-50); Potassium 4.4 mmol/L (3.4-5.1); Sodium 136 mmol/L (137-145)
[2023-11-30 11:31] LABS: Prostate Specific Antigen 2.26 ng/mL (0.10-4.00)
== END ==
PROVIDERS: Family Provider Internal Medicine; PCP Internal Medicine; Referring Provider Nurse Practitioner; Visit Provider Nurse Practitioner
DX: N40.1 Benign prostatic hyperplasia with lower urinary tract symptoms (principal); I48.0 Paroxysmal atrial fibrillation; I10 Essential (primary) hypertension; I35.0 Nonrheumatic aortic (valve) stenosis; N13.8 Other obstructive and reflux uropathy
CPT/HCPCS: 36415; 80048; 84153

== ENCOUNTER → 2024-02-07 16:02 | Outpatient (CLI) | payer MEDICARE, OTHER, SELFPAY ==
[2024-02-07 21:02] LABS: Influenza A - CEPHEID Flu A NEGATIVE (NEGATIVE); Influenza B - CEPHEID Flu B NEGATIVE (NEGATIVE); Respiratory Syncytial Virus Negative (Negative)
[2024-02-07 21:22] LABS: COVID-19 CEPHEID 4-PLEX PCR Negative (Negative)
== END ==
LOC: LAB 16:03
PROVIDERS: Family Provider Internal Medicine; PCP Internal Medicine; Visit Provider Physician Assistant
DX: R05.1 Acute cough (principal)
CPT/HCPCS: 0241U

== ENCOUNTER → 2024-03-13 07:17 | Outpatient (CLI) | payer MEDICARE, OTHER, SELFPAY ==
[2024-03-13 08:39] LABS: BUN Creatinine Ratio 18.2 (6-22); Blood Urea Nitrogen 14 mg/dL (9-20); Calcium 9.1 mg/dL (8.4-10.2); Carbon Dioxide 29 mmol/L (22-32); Chloride 106 mmol/L (98-107); Estimated Glomerular Filt Rate > 60 mL/min (>60); Glucose 93 mg/dL (80-110); HEMOLYSIS < 15 (0-50); Potassium 4.4 mmol/L (3.4-5.1); Sodium 139 mmol/L (137-145)
== END ==
PROVIDERS: Family Provider Internal Medicine; PCP Internal Medicine; Referring Provider Nurse Practitioner; Visit Provider Nurse Practitioner
DX: Z51.81 Encounter for therapeutic drug level monitoring (principal); Z79.899 Other long term (current) drug therapy
CPT/HCPCS: 36415; 80048

== ENCOUNTER → 2024-09-16 13:05 | Outpatient (CLI) | payer MEDICARE, OTHER, SELFPAY ==
[2024-09-16 13:58] LABS: BUN Creatinine Ratio 19.1 (6-22); Blood Urea Nitrogen 18 mg/dL (9-20); Calcium 9.5 mg/dL (8.4-10.2); Carbon Dioxide 31 mmol/L (22-32); Chloride 102 mmol/L (98-107); Estimated Glomerular Filt Rate > 60 mL/min (>60); Glucose 123 mg/dL (80-110); HEMOLYSIS < 15 (0-50); Potassium 4.5 mmol/L (3.4-5.1); Sodium 137 mmol/L (137-145)
== END ==
PROVIDERS: Family Provider Internal Medicine; PCP Internal Medicine; Referring Provider Nurse Practitioner; Visit Provider Nurse Practitioner
DX: I48.0 Paroxysmal atrial fibrillation (principal); Z51.81 Encounter for therapeutic drug level monitoring; Z79.899 Other long term (current) drug therapy
CPT/HCPCS: 36415; 80048

== ENCOUNTER → 2024-12-23 09:16 | Outpatient (CLI) | payer MEDICARE, SELFPAY ==
[2024-12-23 10:40] LABS: BUN Creatinine Ratio 18.4 (6-22); Blood Urea Nitrogen 19 mg/dL (9-20); Calcium 9.8 mg/dL (8.4-10.2); Carbon Dioxide 28 mmol/L (22-32); Chloride 103 mmol/L (98-107); Estimated Glomerular Filt Rate > 60 mL/min (>60); Glucose 106 mg/dL (80-110); HEMOLYSIS < 15 (0-50); Potassium 4.8 mmol/L (3.4-5.1); Sodium 137 mmol/L (137-145)
== END ==
PROVIDERS: Family Provider Internal Medicine; PCP Internal Medicine; Referring Provider Nurse Practitioner; Visit Provider Nurse Practitioner
DX: I48.0 Paroxysmal atrial fibrillation (principal); Z79.899 Other long term (current) drug therapy; Z51.81 Encounter for therapeutic drug level monitoring
CPT/HCPCS: 36415; 80048; 83735

== ENCOUNTER → 2025-03-26 09:18 | Outpatient (CLI) | payer MEDICARE, OTHER, SELFPAY ==
[2025-03-26 10:46] LABS: Blood Urea Nitrogen 22 mg/dL (9-20); Calcium 9.3 mg/dL (8.4-10.2); Carbon Dioxide 29 mmol/L (22-32); Chloride 103 mmol/L (98-107); Estimated Glomerular Filt Rate > 60 mL/min (>60); Glucose 99 mg/dL (70-99); HEMOLYSIS < 15 (0-50); Magnesium 1.9 mg/dL (1.6-2.3); Potassium 4.4 mmol/L (3.4-5.1); Sodium 139 mmol/L (137-145)
[2025-03-26 10:48] LABS: Cholesterol 169 mg/dL (140-199); HDL Cholesterol 50 mg/dL (40-60); LDL Cholesterol Calculated 95 mg/dL (<100); Triglycerides 122 mg/dL (35-150)
[2025-03-26 11:13] LABS: Prostate Specific Antigen 3.07 ng/mL (0.10-4.00)
== END ==
PROVIDERS: Family Provider Internal Medicine; PCP Internal Medicine; Referring Provider Nurse Practitioner; Visit Provider Nurse Practitioner
DX: I48.0 Paroxysmal atrial fibrillation (principal); Z51.81 Encounter for therapeutic drug level monitoring; N40.1 Benign prostatic hyperplasia with lower urinary tract symptoms; N13.8 Other obstructive and reflux uropathy; E78.2 Mixed hyperlipidemia; Z79.899 Other long term (current) drug therapy
CPT/HCPCS: 36415; 80048; 80061; 83735; 84153

== ENCOUNTER → 2025-09-24 09:01 | Outpatient (CLI) | payer MEDICARE, OTHER, SELFPAY ==
[2025-09-24 09:53] LABS: Blood Urea Nitrogen 21 mg/dL (9-20); Calcium 9.6 mg/dL (8.4-10.2); Carbon Dioxide 30 mmol/L (22-32); Chloride 104 mmol/L (98-107); Estimated Glomerular Filt Rate > 60 mL/min (>60); Glucose 107 mg/dL (70-99); HEMOLYSIS < 15 (0-50); Magnesium 1.9 mg/dL (1.6-2.3); Potassium 4.1 mmol/L (3.4-5.1); Sodium 142 mmol/L (137-145)
== END ==
PROVIDERS: Family Provider Internal Medicine; PCP Internal Medicine; Referring Provider Internal Medicine; Visit Provider Nurse Practitioner
DX: Z51.81 Encounter for therapeutic drug level monitoring (principal); Z79.899 Other long term (current) drug therapy
CPT/HCPCS: 36415; 80048; 83735